=== PATIENT | male | born 1985 | race Caucasian/White ===

== ENCOUNTER 2017-04-02 22:22 | Emergency (ER) | payer MEDICARE, MEDICAID ==
[2017-04-03] MEDS ORDERED: Metoclopramide HCl 10 MG/2 ML VIAL ONE (00:02)
[2017-04-03] MEDS ORDERED: diphenhydrAMINE 50 MG/ML VIAL ONE (00:02)
[2017-04-03] MEDS ORDERED: Ketorolac Tromethamine 30 MG/ML VIAL ONE (01:02)
--- NOTE | 2017-04-03 09:19 | CT ---
PRELIMINARY REPORT/[facility]/EMERGENCY AFTER HOURS PROCEDURE: EXAM: CT Head Without Intravenous Contrast EXAM DATE/TIME: Exam ordered 04/03/2017 12:33 AM CLINICAL HISTORY: 31 years old, male; Pain; Headache; Patient HX: History provided by patient, onset 11 days ago. HX of tbi 11y. A. Frontal ZHAO, associated w photophobia. No relief with triptan. No neuro deficits. No fami ly HX anerysm. TECHNIQUE: Axial computed tomography images of the head/brain without intravenous contrast. COMPARISON: No relevant prior studies available. FINDINGS: Brain: Unremarkable. No hemorrhage. No significant white matter disease. No edema. Ventricles: Unremarkable. No ventriculomegaly. Bones/joints: Unremarkable. No acute fracture. Soft tissues: Unremarkable. Sinuses: Unremarkable as visualized. No acute sinusitis. Mastoid air cells: Unremarkable as visualized. No mastoid effusion. IMPRESSION: Normal head/brain CT. Thank you for allowing us to participate in the care of your patient. Dictated and Authenticated by: Bimal Cuello MD 04/03/2017 12:57 AM Central Time ([place] & [place]) FINAL REPORT BRAIN CT WITHOUT IV CONTRAST: EMERGENCY AFTER HOURS EXAM TIME: 12:40 a.m. DATE: 04/03/17. FINDINGS/IMPRESSION: No mass or bleed or other acute process. POS: [facility]
== END 2017-04-03 01:16 | disposition home or self-care (01) ==
LOC: SCSER 22:22
DX: R51 Headache (principal); F41.9 Anxiety disorder, unspecified; F42.9 Obsessive-compulsive disorder, unspecified
CPT/HCPCS: 70450; 96365; 96375; J1200; J1885; J2765

== ENCOUNTER 2017-04-05 10:15 | Outpatient (CLI) | payer MEDICARE, MEDICAID ==
--- NOTE | 2017-04-05 12:59 | MRI ---
MRA NIGHTMUTE OF HAST[place] AND VERTEBROBASILAR SYSTEM WITH 3D RECONSTRUCTIONS: 04/05/2017 HISTORY: Sudden onset of severe headache. The patient has had a headache for 13 days. TECHNIQUE: 3D [id number] images of the rampart of [place] and vertebrobasilar system are provided with 3D dennis nstruction images also provided. FINDINGS: No focal stenosis or branch occlusion is seen involving the anterior cerebral, middle cerebral, poste rior cerebral, or vertebrobasilar arteries. No focal aneurysm is seen within the limitations of the technique of this examination. IMPRESSION: Patent rampart of [place] and vertebrobasilar arteries. No focal aneurysm is seen within the limitatio ns of the technique of this exam. POS: [facility]
== END 2017-04-05 10:16 | disposition home or self-care (01) ==
LOC: TBSIIMAG 10:15
PROVIDERS: ATTEND Family Medicine
DX: R51 Headache (principal)
CPT/HCPCS: 70544

== ENCOUNTER 2017-08-16 01:06 | Emergency (ER) | payer MEDICARE, MEDICAID ==
[2017-08-16] MEDS ORDERED: Ketorolac Tromethamine 30 MG/ML VIAL ONE (01:12)
[2017-08-16 01:39] LABS: #Basophils 0.1 thou/uL (0.0-0.2); #Eosinphils 0.1 thou/uL (0.0-0.7); #Lymphocytes 1.9 thou/uL (1.20-3.40); #Monocytes 0.7 thou/uL (0.11-0.59); #Neutrophils 6.2 thou/uL (1.40-6.50); %Basophils 0.8 % (0.0-1.0); %Eosinophils 1.4 % (0.0-10.0); %Lymphocytes 21.2 % (21.0-51.0); %Monocytes 7.4 % (0.0-10.0); %Neutrophils 69.2 % (42.0-75.0); Hemoglobin 14.4 g/dL (14.0-18.0); Mean Corpuscular HGB CONC 35.4 g/dL (32.0-36.0); Mean Corpuscular Hemoglobin 29.7 pg (27.0-31.0); Mean Corpuscular Volume 83.9 fl (80.0-94.0); Mean Platelet Volume 9.8 fL (7.4-10.4); Platelet Count 177 thou/uL (130-400); RBC Distribution Width 11.5 % (11.5-14.5); Red Blood Cell (RBC) Count 4.84 mill/uL (4.70-6.10); White Blood Cell (WBC) Count 8.9 thou/uL (4.8-10.8)
[2017-08-16 02:09] LABS: Anion Gap 14 mmol/L (10-20); BUN (Urea Nitrogen) 14 mg/dL (8.9-20.6); Calc. Creatinine Clearance 0 mL/min (70-130); Carbon Dioxide 24 mmol/L (22-29); Chloride 104 mmol/L (98-107); Estimated GFR-MDRD 69; Glucose 130 mg/dL (70-105); Potassium 4.1 mmol/L (3.5-5.1); Sodium 138 mmol/L (136-145)
[2017-08-16 02:44] LABS: Bilirubin Negative (Negative); Blood, Urine Small (Negative); Clarity CLEAR (Clear); Glucose, Urine (Dipstick) Negative (Negative); Leukocyte Negative (Negative); Nitrite Negative (Negative); Protein, Urine (Dipstick) Trace mg/dL (Neg-Trace); Specific Gravity, Urine 1.021 (1.002-1.036); Urobilinogen 0.2 mg/dL (0.2-1.0); pH, Urine 7.5 (5.0-9.0)
[2017-08-16 02:46] LABS: Bacteria/HPF None Seen HPF (None Seen); Hyaline Casts/LPF 0-3 HYALINE CAST LPF (0-3 Hyaline); Pathc Cast-AUWi Flag 0.14 (0-2.49); Squamous Epithelial 0-3 HPF (0-3); WBC/HPF None Seen HPF (0-3)
[2017-08-16] MEDS ORDERED: HYDROcodone/Acetaminophen 10/325 mg Tablet ONE (04:01)
--- NOTE | 2017-08-16 08:43 | CT ---
PRELIMINARY REPORT/[facility]/EMERGENTY AFTER-HOURS PROCEDURE CT Abdomen and Pelvis Without Intravenous Contrast CLINICAL HISTORY: 32 years old, male; Pain; Abdominal pain; Flank; Right; Prior surgery; Patient HX: Er 6; R flank pain x 3 days with vomiting worse tonight. Surgical history of appendectomy TECHNIQUE: Axial computed tomography images of the abdomen and pelvis without intravenous contrast. Coronal refo rmatted images were created and reviewed. COMPARISON: No relevant prior studies available. FINDINGS: Lower thorax: Small hiatal hernia. ABDOMEN: Liver: Normal. No mass. Gallbladder and bile ducts: Normal. No calcified stones. No ductal dilation. Pancreas: Normal. No ductal dilation. Spleen: Normal. No splenomegaly. Adrenals: Normal. No mass. Kidneys and ureters: There are subcentimeter nonobstructing left renal stones. There is mild to moder ate right hydronephrosis secondary to 0.3 cm distal ureteral stone near the ureterovesical junction. Stomach and bowel: Normal. No obstruction. No mucosal thickening. Appendix: Appendectomy. PELVIS: Bladder: Unremarkable as visualized. Reproductive: Unremarkable as visualized. ABDOMEN and PELVIS: Intraperitoneal space: Normal. No free air. No significant fluid collection. Bones/joints: No acute fracture. No dislocation. Soft tissues: Unremarkable. Vasculature: Normal. No abdominal aortic aneurysm. Lymph nodes: Normal. No enlarged lymph nodes. IMPRESSION: 1. Mild to moderate right-sided hydronephrosis secondary to 0.3 cm distal ureteral stone near the ure terovesical junction. 2. Subcentimeter nonobstructing left renal stones. Thank you for allowing us to participate in the care of your patient. Dictated and Authenticated by: Chelsi Raymond DO 08/16/2017 2:41 AM Central Time ([place] & [place]) FINAL REPORT CT ABDOMEN AND PELVIS NONCONTRAST: DATE: 08/16/17. TIME: Performed on an emergency basis at 0127 hours. HISTORY: Right flank pain. FINDINGS: Findings agree with the preliminary report by Dr. Raymond from [facility]. Partial obstruction at a 3 mm distal right ureteral calculus. Additional nonobstructing left renal calculi. Lack of contrast limits evaluation for other abnormalities. POS: [facility]
== END 2017-08-16 03:39 | disposition home or self-care (01) ==
LOC: ERS 01:06
DX: N13.2 Hydronephrosis with renal and ureteral calculous obstruction (principal); F42.9 Obsessive-compulsive disorder, unspecified; F41.0 Panic disorder [episodic paroxysmal anxiety]
CPT/HCPCS: 36415; 74176; 80048; 81003; 81015; 85025; 96361; 96374; J1885

== ENCOUNTER 2017-09-29 11:09 | Outpatient (CLI) | payer MEDICARE, MEDICAID ==
[2017-09-29 12:51] LABS: #Basophils 0.1 thou/uL (0.0-0.2); #Eosinphils 0.1 thou/uL (0.0-0.7); #Lymphocytes 1.8 thou/uL (1.20-3.40); #Monocytes 0.8 thou/uL (0.11-0.59); #Neutrophils 4.7 thou/uL (1.40-6.50); %Basophils 1.1 % (0.0-1.0); %Eosinophils 1.4 % (0.0-10.0); %Lymphocytes 24.8 % (21.0-51.0); %Monocytes 10.1 % (0.0-10.0); %Neutrophils 62.7 % (42.0-75.0); Mean Corpuscular HGB CONC 35.3 g/dL (32.0-36.0); Mean Corpuscular Hemoglobin 29.6 pg (27.0-31.0); Mean Platelet Volume 9.8 fL (7.4-10.4); Platelet Count 194 thou/uL (130-400); RBC Distribution Width 11.5 % (11.5-14.5); Red Blood Cell (RBC) Count 5.07 mill/uL (4.70-6.10); White Blood Cell (WBC) Count 7.5 thou/uL (4.8-10.8)
[2017-09-29 13:17] LABS: Anion Gap 16 mmol/L (10-20); BUN (Urea Nitrogen) 14 mg/dL (8.9-20.6); Calc. Creatinine Clearance 0 mL/min (70-130); Calcium 9.7 mg/dL (7.8-10.44); Carbon Dioxide 23 mmol/L (22-29); Chloride 105 mmol/L (98-107); Estimated GFR-MDRD 89; Glucose 78 mg/dL (70-105); Potassium 3.8 mmol/L (3.5-5.1); Sodium 140 mmol/L (136-145)
== END 2017-09-29 11:10 | disposition home or self-care (01) ==
LOC: LABBT 11:09
PROVIDERS: ATTEND Surgery
DX: Z01.812 Encounter for preprocedural laboratory examination (principal); K40.90 Unilateral inguinal hernia, without obstruction or gangrene, not specified as recurrent
CPT/HCPCS: 80048; 85025

== ENCOUNTER 2017-10-12 11:25 | Day surgery (SDC) | payer MEDICARE, MEDICAID ==
[2017-09-29 11:27] VITALS: BMI 29.2
[2017-10-12] MEDS ORDERED: Levofloxacin 500 mg/D5W 100 ml Premix Bag ONE (12:58)
[2017-10-12] MEDS ORDERED: Midazolam HCl 2 mg/2 ml Vial ONE ×2 (12:58→13:37)
[2017-10-12] MEDS ORDERED: Fentanyl 100 MCG/2 ML VIAL ONE ×3 (13:37→16:20)
[2017-10-12] MEDS ORDERED: Bupivacaine/Epinephrine 0.25% 30 ML VIAL ONE (13:38)
[2017-10-12] MEDS ORDERED: PHENYLEPHRINE-NS 100 MCG/ML 10 ML SYRINGE ONE (14:50)
[2017-10-12] MEDS ORDERED: Lidocaine 1% PF 5 ML VIAL ONE (14:50)
[2017-10-12] MEDS ORDERED: Ketorolac Tromethamine 30 MG/ML VIAL ONE (14:50)
[2017-10-12] MEDS ORDERED: Ondansetron HCl/PF 4 MG/2 ML Vial ONE (14:50)
[2017-10-12] MEDS ORDERED: Dexamethasone 20 MG/5 ML VIAL ONE (14:50)
[2017-10-12] MEDS ORDERED: Glycopyrrolate 0.2 MG/ML 5 ML SYRINGE ONE (14:50)
[2017-10-12] MEDS ORDERED: PROPOFOL 200 MG/20 ML VIAL ONE (14:50)
[2017-10-12] MEDS ORDERED: Promethazine HCl 25 MG/ML VIAL ONE (15:27)
[2017-10-12] MEDS ORDERED: Meperidine HCl/PF 25 MG/ML VIAL ONE (15:29)
[2017-10-12] MEDS ORDERED: HYDROcodone/Acetaminophen 5/325 mg Tablet ONE (17:28)
--- NOTE | 2017-10-12 20:24 | OP ---
DATE OF PROCEDURE: 10/12/2017 PREOPERATIVE DIAGNOSIS: Right inguinal hernia. POSTOPERATIVE DIAGNOSIS: Right inguinal hernia. PROCEDURE: Da Carmen laparoscopic right inguinal hernia repair with mesh, Bard 3DMax large. SURGEON: Miguel Angel Whalen M.D. ANESTHESIA: General. ESTIMATED BLOOD LOSS: Minimal. COMPLICATIONS: None. SPECIMEN: None. FINDINGS: Right inguinal hernia. TECHNIQUE: The patient was taken to the operating room and placed supine on the table. After genera l anesthetic was obtained, a Peter was placed. The abdomen was shaved, prepped, and draped in a ster ile fashion. Curved incision was made above the umbilicus, cut dissect down to and score the fascia. Abdominal cavity was entered bluntly using a Stephanie clamp. Holding stitch of PDS placed on each agnes e of the fascia. A 11 mm balloon trocar was placed. High-flow pneumoperitoneum was obtained. Left and right abdominal 8 mm robot trocars were placed. All ports were docked to the robot. The patient had been placed in Trendelenburg position. The peritoneum was opened in the right lower quadrant in to the preperitoneal space of the right groin. Preperitoneal space was bluntly dissected to the pubi c tubercle medially and to the anterior superiorly iliac crest laterally. The iliopectineal line was fully exposed. There was an indirect hernia. The indirect hernia sac was dissected out of the ingu inal canal back high up onto the peritoneum. A 3DMax large mesh had been brought into the sterile fi eld and labeled medial aspect was placed over pubic tubercle medially. The mesh laid out laterally t o cover the femoral direct and indirect areas. The mesh was sewn via Vicryl suture to pubic tubercle and to the posterior fascia lateral to the inferior epigastric vessels. The peritoneum was reapprox imated using 3-0 Stratafix. All port sites were infiltrated using local anesthetic. All ports were removed under a conversation without bleeding. Pneumoperitoneum was let down. PDS was used to close the fascial defect below the umbilicus. All incisions were irrigated and closed using 4-0 Monocryl and Dermabond. The patient went to recovery in stable condition. All sponge counts, needle counts, lap counts were correct.
== END 2017-10-12 18:08 | disposition home or self-care (01) ==
LOC: SDC 11:25
PROVIDERS: ATTEND Surgery
PROC: 0YU54JZ Supplement Right Inguinal Region with Synthetic Substitute, Percutaneous Endoscopic Approach (ICD-10-PCS; principal; 2017-10-12)
DX: K40.90 Unilateral inguinal hernia, without obstruction or gangrene, not specified as recurrent (principal); F32.9 Major depressive disorder, single episode, unspecified; F41.9 Anxiety disorder, unspecified; Z87.820 Personal history of traumatic brain injury; Z79.899 Other long term (current) drug therapy; Z88.1 Allergy status to other antibiotic agents
CPT/HCPCS: 49650; 96374 ×2; C1781; 96375; 96376; J1100; J1885; J1956; J2001; J2175; J2250; J2405; J2550; J2704; J3010

== ENCOUNTER 2018-03-12 20:54 | Emergency (ER) | payer MEDICARE, MEDICAID ==
[2018-03-12] MEDS ORDERED: Ketorolac Tromethamine 30 MG/ML VIAL ONE (21:15)
[2018-03-12] MEDS ORDERED: Dicyclomine 20 MG TAB ONE ×2 (21:15→21:30)
[2018-03-12 21:38] LABS: #Basophils 0.1 thou/uL (0.0-0.2); #Eosinphils 0.1 thou/uL (0.0-0.7); #Lymphocytes 2.3 thou/uL (1.20-3.40); #Monocytes 0.7 thou/uL (0.11-0.59); #Neutrophils 5.9 thou/uL (1.40-6.50); %Basophils 1.2 % (0.0-1.0); %Eosinophils 1.1 % (0.0-10.0); %Lymphocytes 24.9 % (21.0-51.0); %Monocytes 8.1 % (0.0-10.0); %Neutrophils 64.7 % (42.0-75.0); Hemoglobin 16.1 g/dL (14.0-18.0); Mean Corpuscular HGB CONC 35.8 g/dL (32.0-36.0); Mean Corpuscular Hemoglobin 29.2 pg (27.0-31.0); Mean Corpuscular Volume 81.6 fL (78.0-98.0); Mean Platelet Volume 11.9 fL (7.4-10.4); Platelet Count 234 thou/uL (130-400); Red Blood Cell (RBC) Count 5.52 mill/uL (4.70-6.10); White Blood Cell (WBC) Count 9.1 thou/uL (4.8-10.8)
[2018-03-12 21:50] LABS: ALT (SGPT) 27 U/L (8-55); AST (SGOT) 18 U/L (5-34); Albumin 4.9 g/dL (3.5-5.0); Alkaline Phosphatase 56 U/L (40-150); Anion Gap 14 mmol/L (10-20); BUN (Urea Nitrogen) 13 mg/dL (8.9-20.6); Bilirubin, Total 0.8 mg/dL (0.2-1.2); Calc. Creatinine Clearance 0 mL/min (70-130); Calcium 9.8 mg/dL (7.8-10.44); Carbon Dioxide 28 mmol/L (22-29); Chloride 103 mmol/L (98-107); Estimated GFR-MDRD 85; Globulin 3.2 g/dL (2.4-3.5); Glucose 83 mg/dL (70-105); Potassium 3.9 mmol/L (3.5-5.1); Protein, Total 8.1 g/dL (6.0-8.3); Sodium 141 mmol/L (136-145)
[2018-03-12 22:44] LABS: Bilirubin Negative (Negative); Blood, Urine Negative (Negative); Clarity Clear (Clear); Glucose, Urine (Dipstick) Negative (Negative); Leukocyte Negative (Negative); Nitrite Negative (Negative); Protein, Urine (Dipstick) Negative (Neg-Trace); Urobilinogen 0.2 mg/dL (0.2-1.0)
--- NOTE | 2018-03-12 23:53 | CT ---
ABDOMEN AND PELVIC CT SCAN WITH IV CONTRAST 03/12/18 HISTORY: Right sided abdominal pain including right lower quadrant. Prior right inguinal surgery repair one ye ar ago. Lung bases are clear. The liver, gallbladder, pancreas, spleen, adrenal glands are unremarkable. Ther e are two small nonobstructing left renal calculi but no evidence for acute obstruction. Status po st appendectomy. Urinary bladder is unremarkable. No evidence for intraperitoneal fluid, adenopathy, or bowel obstruction. IMPRESSION: Nonobstructing left renal calculi. No evidence for acute obstruction. Status post appendectomy. No evidence for other significant acute process in the abdomen or pelvis. POS: [facility]
== END 2018-03-12 23:47 | disposition home or self-care (01) ==
LOC: SCSER 20:54
DX: R10.31 Right lower quadrant pain (principal); F41.0 Panic disorder [episodic paroxysmal anxiety]
CPT/HCPCS: 74177; 80053; 81003; 85025; 87086; 96361; 96374; J1885

== ENCOUNTER 2018-09-15 00:04 | Emergency (ER) | payer MEDICARE, MEDICAID | END 2018-09-15 00:27 | disposition home or self-care (01) | LOC: SCSER 00:04 | DX: I80.9 Phlebitis and thrombophlebitis of unspecified site (principal); F41.0 Panic disorder [episodic paroxysmal anxiety] | CPT/HCPCS: 99283 ==

== ENCOUNTER 2019-02-07 13:25 | Outpatient (CLI) | payer MEDICARE, MEDICAID ==
--- NOTE | 2019-02-07 14:22 | ULT ---
US Renal Bilateral STANDARD History: Varicocele Comparison: CT abdomen and pelvis March 2018 Findings: Real-time grayscale and color evaluation of the kidneys and urinary bladder was performed. Right kidney measures 11.3 x 4.8 x 5.8 cm and the left kidney measures 11.6 x 5.2 x 5.1 cm. No renal mass, hydronephrosis, or abnormal calcifications. Urinary bladder volume is 382 mL prevoid with no significant post void residual. Both ureteral jets a re visualized. Impression: Normal renal examination.
== END 2019-02-07 13:26 | disposition home or self-care (01) ==
LOC: BICULT 13:25
PROVIDERS: ATTEND Urology
DX: I86.1 Scrotal varices (principal)
CPT/HCPCS: 76770

== ENCOUNTER 2019-04-07 05:34 | Outpatient (CLI) | payer MEDICARE, MEDICAID ==
[2019-04-07 18:09] LABS: Hemoglobin 18.4 g/dL (14.0-18.0); Mean Corpuscular HGB CONC 34.8 g/dL (32.0-36.0); Mean Corpuscular Hemoglobin 29.8 pg (27.0-31.0); Mean Corpuscular Volume 85.7 fL (78.0-98.0); Mean Platelet Volume 9.7 fL (7.4-10.4); Platelet Count 299 thou/uL (130-400); RBC Distribution Width 11.8 % (11.5-14.5); Red Blood Cell (RBC) Count 6.18 mill/uL (4.70-6.10); White Blood Cell (WBC) Count 9.3 thou/uL (4.8-10.8)
[2019-04-07 18:11] LABS: Bacteria/HPF None Seen HPF (None Seen); Bilirubin Negative (Negative); Blood, Urine Negative (Negative); Clarity Clear (Clear); Glucose, Urine (Dipstick) Normal (Negative); Leukocyte Negative Leu/uL (Negative); Mucous/LPF Rare LPF (<2+); Nitrite Negative (Negative); Protein, Urine (Dipstick) Negative (Neg-Trace); RBC/HPF 0-3 HPF (0-3); Squamous Epithelial None Seen HPF (0-3); Urobilinogen Normal mg/dL (Less than 2); WBC/HPF 0-3 HPF (0-3)
[2019-04-07 18:18] LABS: INR-International Normal Ratio 1.1; PTT 31.5 SEC (22.9-36.1); Prothrombin Time 14.5 SEC (12.0-14.7)
[2019-04-07 18:33] LABS: Anion Gap 16 mmol/L (10-20); BUN (Urea Nitrogen) 14 mg/dL (8.9-20.6); Calc. Creatinine Clearance 0 mL/min (70-130); Calcium 9.9 mg/dL (7.8-10.44); Carbon Dioxide 25 mmol/L (22-29); Chloride 101 mmol/L (98-107); Estimated GFR-MDRD 77; Glucose 91 mg/dL (70-105); Sodium 138 mmol/L (136-145)
== END 2019-04-07 05:35 | disposition home or self-care (01) ==
LOC: LABBT 05:34
PROVIDERS: ATTEND Urology
DX: Z01.818 Encounter for other preprocedural examination (principal); R10.31 Right lower quadrant pain; N20.0 Calculus of kidney; N34.3 Urethral syndrome, unspecified; G89.29 Other chronic pain; N50.819 Testicular pain, unspecified; R10.2 Pelvic and perineal pain; E29.1 Testicular hypofunction; N52.1 Erectile dysfunction due to diseases classified elsewhere
CPT/HCPCS: 80048; 81001; 85027; 85610; 85730; 87086

== ENCOUNTER 2019-04-13 06:44 | Day surgery (SDC) | payer MEDICARE, MEDICAID ==
[2019-04-07 17:16] VITALS: BMI 29.5
[2019-04-13] MEDS ORDERED: Fentanyl 100 MCG/2 ML VIAL ONE (06:48)
[2019-04-13] MEDS ORDERED: Bupivacaine 0.25% HCL 30 ML VIAL ONE (06:57)
[2019-04-13] MEDS ORDERED: Bacitracin Zinc Ointment 30 gm TUBE ONE (06:57)
[2019-04-13] MEDS ORDERED: Midazolam HCl 2 mg/2 ml Vial ONE (08:52)
[2019-04-13] MEDS ORDERED: Ondansetron PF 4 MG/2 ML Vial ONE (14:26)
[2019-04-13] MEDS ORDERED: Ketorolac Tromethamine 30 MG/ML VIAL ONE (14:26)
[2019-04-13] MEDS ORDERED: Lidocaine 1% PF 5 ML VIAL ONE (14:26)
[2019-04-13] MEDS ORDERED: Dexamethasone 20 MG/5 ML VIAL ONE (14:26)
[2019-04-13] MEDS ORDERED: PROPOFOL 200 MG/20 ML VIAL ONE (14:26)
--- NOTE | 2019-04-13 15:04 | OP ---
DATE OF PROCEDURE: 04/13/2019 SERVICE: Urology. PREOPERATIVE DIAGNOSIS: Right epididymal pain. POSTOPERATIVE DIAGNOSIS: Right epididymal pain. PROCEDURE PERFORMED: Right epididymectomy. INDICATION FOR PROCEDURE: Mr. Garcia is a 33-year-old white male with right epididymal pain. He presented with scrotal pain on the right side, which was thoroughly evaluated and found to be located in the right epididymis. A cord block demonstrated complete cessation of the pain, indicating the pain is likely coming from the testicular region. We discussed epididymectomy as a possible solution to this; although, there were no guarantees made. He understands that this may not completely alleviate his pain, but there does seem to be good evidence that may be based on current workup. He understands there will be decrease in his fertility as a result of this procedure. He understands and is willing to proceed forward. Other risks and benefits were also discussed with the patient, and he is also in agreement with those as well. DESCRIPTION OF PROCEDURE: After identification of armband and verification of consent, the patient was brought back to the operating room. He underwent general anesthesia with an LMA. He was left in the supine position and prepped and draped in usual sterile fashion. After appropriate time-out, a cord block was performed at the right scrotum at the external ring nerve block. An incision was made over the right hemiscrotum over the testicle, and dissection was carried down with Bovie electrocautery and sharp dissection until the tunica vaginalis was identified. The testis was delivered outside the patient's scrotum and the tunica vaginalis opened. This was widely opened to prevent hydrocele recurrence. The testicle appeared grossly normal. There was an appendix testis, which was removed. There were no obvious masses or lesions. The epididymis appeared grossly normal. There was no significant inflammation, scarring, abscesses, or masses. Given that the surgery is being done for pain control, there was no specific abnormality. It was targeted for removal. Initial dissection of the epididymis was then begun at the head of the epididymis and dissected off the testicle using Bovie electrocautery. The rete testis was from the testicle with Bovie electrocautery, and dissection was carried down along the body of the epididymis. At one point, one of the pampiniform veins came in very close proximity to the epididymis and had a slight migdalia in it from the cautery, which resulted in some bleeding. There was a very minor bleed, but due to the persistence, a small 4-0 Vicryl was placed in just that vein to avoid testicular artery ligation, which resulted in good control of the venous bleeding with no change in color or skin into the testicle. The epididymis was then continued to be dissected down all the way up to the tail of the epididymis, which was removed. The dissection was then carried out approximately 2 to 3 cm onto the vas deferens. At which point, the vas deferens was ligated to control the deferential artery in two locations, then divided. The full epididymis and portion of the vas deferens was then submitted for routine pathologic evaluation. Any minor bleeding areas were cauterized. Upon completion, there was no obvious bleeding from anywhere on the testicle, tunica vaginalis, or region of where the epididymis used to be. The testicle appeared viable. There would appear to be no injury to the testicular artery. A cord block was performed directly onto the testicular cord approximately 2 to 3 mL of 0.25% Marcaine plain, which was done early on in the case. A drain was brought in through the inferior aspect of the scrotum by making a small approximately 1 cm incision on the inferior aspect of the scrotum using the cutting current on the Bovie electrocautery. Hemostats were then used to guide in quarter-inch Destin drain, at which the top end was suture ligated using a 4-0 Monocryl to a very small piece of the external spermatic fascia for later retrieval. The drain was secured on the outside of the skin with a 2-0 nylon. The testis was then copiously irrigated, and the fluid was drained out. The dartos and spermatic fascia were then closed using a 2-0 Vicryl in a running fashion. The skin was closed with a 4-0 Monocryl. Dermabond was applied and once dry, 4x4s were put over the drain site and then a jockstrap applied. The patient was then awakened, taken to PACU for recovery in stable condition. COMPLICATIONS: None. ESTIMATED BLOOD LOSS: Minimal. RETAINED TUBES AND DRAINS: A quarter-inch Freedom drain. SPECIMENS: Right epididymis and portion of the vas deferens. DISPOSITION: The patient will be discharged home and follow up with me in approximately 2 weeks, but he will have his drain removed next week as a nursing visit. Job ID: [id number]
== END 2019-04-13 13:25 | disposition home or self-care (01) ==
LOC: SDC 06:44
PROVIDERS: ATTEND Urology
PROC: 0VTJ0ZZ Resection of Right Epididymis, Open Approach (ICD-10-PCS; principal; 2019-04-13)
DX: N50.811 Right testicular pain (principal); Q55.29 Other congenital malformations of testis and scrotum; G47.00 Insomnia, unspecified; F41.0 Panic disorder [episodic paroxysmal anxiety]; F32.9 Major depressive disorder, single episode, unspecified; N52.1 Erectile dysfunction due to diseases classified elsewhere; E29.1 Testicular hypofunction; G89.29 Other chronic pain; R10.31 Right lower quadrant pain; R10.2 Pelvic and perineal pain; Z87.820 Personal history of traumatic brain injury; Z79.899 Other long term (current) drug therapy; Z88.1 Allergy status to other antibiotic agents
CPT/HCPCS: 88304; J0690; J1100; J1885; J2001; J2250; J2405; J2704; J3010; S0020

== ENCOUNTER 2019-04-27 12:31 | Outpatient (CLI) | payer MEDICARE, MEDICAID ==
--- NOTE | 2019-04-27 13:41 | ULT ---
EXAM: US Testicular W Doppler PROVIDED CLINICAL HISTORY: Hydrocele COMPARISON: None FINDINGS: Right testicle measures approximately 3.7 x 2.1 x 2.3 cm and demonstrates a normal grayscale sonograp hic appearance. The right epididymis is not visualized. There is a large complex right hydrocele. Left testicle measures approximately 3.4 x 2.2 x 2.2 cm and demonstrates a normal grayscale sonograph ic appearance. The left epididymis appears normal. No evidence for left-sided hydrocele. No evidence for varicocele. Color Doppler and spectral analysis of the testicular waveforms demonstrates flow bilaterally. IMPRESSION: Large complex right hydrocele.
== END 2019-04-27 12:32 | disposition home or self-care (01) ==
LOC: SCSULT 12:31
PROVIDERS: ATTEND Urology
DX: N43.3 Hydrocele, unspecified (principal)
CPT/HCPCS: 76870; 93976

== ENCOUNTER 2019-05-10 07:47 | Outpatient (CLI) | payer MEDICARE, MEDICAID ==
[2019-05-10 13:13] LABS: Mean Corpuscular HGB CONC 34.8 g/dL (32.0-36.0); Mean Corpuscular Hemoglobin 29.7 pg (27.0-31.0); Mean Corpuscular Volume 85.3 fL (78.0-98.0); Mean Platelet Volume 9.3 fL (7.4-10.4); Platelet Count 270 thou/uL (130-400); RBC Distribution Width 11.5 % (11.5-14.5); Red Blood Cell (RBC) Count 5.39 mill/uL (4.70-6.10); White Blood Cell (WBC) Count 9.3 thou/uL (4.8-10.8)
[2019-05-10 13:20] LABS: INR-International Normal Ratio 1.1; Prothrombin Time 13.8 SEC (12.0-14.7)
[2019-05-10 13:26] LABS: Bacteria/HPF None Seen HPF (None Seen); Bilirubin Negative (Negative); Blood, Urine Negative (Negative); Clarity Clear (Clear); Glucose, Urine (Dipstick) Normal (Negative); Leukocyte Negative Leu/uL (Negative); Nitrite Negative (Negative); Protein, Urine (Dipstick) Negative (Neg-Trace); RBC/HPF 0-3 HPF (0-3); Squamous Epithelial 0-3 HPF (0-3); Urobilinogen Normal mg/dL (Less than 2); WBC/HPF 0-3 HPF (0-3)
[2019-05-10 13:31] LABS: PTT 32.6 SEC (22.9-36.1)
[2019-05-10 14:11] LABS: Anion Gap 14 mmol/L (10-20); BUN (Urea Nitrogen) 16 mg/dL (8.9-20.6); Calc. Creatinine Clearance 0 mL/min (70-130); Calcium 10.2 mg/dL (7.8-10.44); Carbon Dioxide 25 mmol/L (22-29); Chloride 102 mmol/L (98-107); Estimated GFR-MDRD 70; Glucose 78 mg/dL (70-105); Potassium 3.7 mmol/L (3.5-5.1); Sodium 137 mmol/L (136-145)
== END 2019-05-10 07:48 | disposition home or self-care (01) ==
LOC: LABBT 07:47
PROVIDERS: ATTEND Urology
DX: Z01.812 Encounter for preprocedural laboratory examination (principal); N43.3 Hydrocele, unspecified; E29.1 Testicular hypofunction; N50.819 Testicular pain, unspecified
CPT/HCPCS: 80048; 81001; 85027; 85610; 85730; 87086

== ENCOUNTER 2019-05-18 09:37 | Day surgery (SDC) | payer MEDICARE, MEDICAID ==
[2019-05-10 11:22] VITALS: BMI 31.0
[2019-05-18] MEDS ORDERED: Ondansetron PF 4 MG/2 ML Vial ONE (09:50)
[2019-05-18] MEDS ORDERED: Metoclopramide HCl 10 MG/2 ML VIAL ONE (09:50)
[2019-05-18] MEDS ORDERED: Lidocaine 1% PF 5 ML VIAL ONE (09:50)
[2019-05-18] MEDS ORDERED: diphenhydrAMINE 50 MG/ML VIAL ONE (09:50)
[2019-05-18] MEDS ORDERED: PROPOFOL 200 MG/20 ML VIAL ONE (09:50)
[2019-05-18] MEDS ORDERED: Sodium Chloride 0.9% 0 ML ONE (13:03)
[2019-05-18] MEDS ORDERED: CEFAZOLIN 1 GM VIAL ONE (13:03)
[2019-05-18] MEDS ORDERED: Bupivacaine 0.25% HCL 30 ML VIAL ONE (13:25)
[2019-05-18] MEDS ORDERED: Fentanyl 100 MCG/2 ML VIAL ONE (13:39)
[2019-05-18] MEDS ORDERED: Vancomycin 1 GM/200 ML BAG ONE (14:03)
--- NOTE | 2019-05-18 16:02 | OP ---
DATE OF PROCEDURE: 05/18/2019 SERVICE: Urology. PREOPERATIVE DIAGNOSIS: Hemorrhagic postoperative hydrocele. POSTOPERATIVE DIAGNOSIS: Hemorrhagic postoperative hydrocele. PROCEDURE PERFORMED: Right hydrocelectomy. INDICATION FOR PROCEDURE: Mr. Garcia is a 34-year-old white male, who initially came to me with complaints of chronic testicular pain. His pain is localized to the right epididymis, which responded to a cord block. We performed a right epididymectomy, but unfortunately the patient removed his drain prematurely and developed a postoperative hydrocele. This did spontaneously rupture at some point a few days before his surgery, but the patient had already elected to go back for hydrocelectomy. I discussed proceeding forward with hydrocelectomy versus continued observation. The patient elected to go for a hydrocelectomy with all risks and benefits discussed, he has agreed to proceed. DESCRIPTION OF PROCEDURE: After identification of armband and verification of consent, the patient was brought back to the operating room. He underwent general anesthesia with an LMA. He was left in the supine position and prepped and draped in usual sterile fashion. After appropriate time-out and using his existing incision, this was extended using a 15 blade and electrocautery to adequately expose the underlying tissues. The hydrocele rind was extremely thick and fibrotic. I was able to put the suction inside the hydrocele chamber and sucked out a large amount of necrotic material. Most of the fluid had already been previously drained as the patient ruptured his hydrocele accidentally at home. Dissection was carried out around the hydrocele sac between the dartos and spermatic fascia until the majority of the hydrocele sac could be identified. The testicle was extremely fibrotic and adhesed to the surrounding tissues out of concern and fear with improper dissection that we could get into the spermatic cord and cause a loss of the entire testicle. I elected to leave the testicle in situ and since the majority of the hydrocele was anterior to the testicle and the rind was extremely thick and the testicle could be palpated in the inside of the hydrocele sac, I went ahead and just excised as much of the hydrocele sac as I safely could without getting too close to the testicle. The hydrocele sac fragments were sent off for routine pathologic evaluation. The inside of the scrotum was then copiously washed with antibiotic irrigation. Meticulous hemostasis was performed of tissues that were inflamed or bleeding or any type of granulation tissue until there was good hemostasis. There was still slight oozing, but at this point I felt that there would not be able to get any further hemostasis than what had been achieved. There was no major bleeding. A small incision was made with the cutting current on the Bovie pen on the inferior aspect of the scrotum where the previous drain site was. Freedom drain was brought through the incision site using hemostat. The proximal end of the [place] was anchored with two separate 4-0 Monocryl sutures to the inside of the dartos fascia for anchoring and the external aspects ligated with a 3-0 nylon. The dartos fascia was then closed with a 4-0 Vicryl in a running fashion and the skin closed with a 4-0 Monocryl. Dermabond was applied and a block was performed of the incision and a cord block with a total of 15 mL of 0.25% Marcaine plain. Once dried, scrotal fluffs were applied and then a jockstrap. The patient was then awakened and taken to PACU for recovery in stable condition. COMPLICATIONS: None. ESTIMATED BLOOD LOSS: Minimal. RETAINED TUBES AND DRAINS: A quarter-inch Freedom drain. SPECIMENS: Hydrocele sac. DISPOSITION: The patient will be discharged home and follow up with me in approximately 1 to 2 weeks for postop check and drain removal. Job ID: [id number] [facility]
[2019-05-18] MEDS ORDERED: Morphine 2 MG/ML SYRINGE ONE (16:24)
[2019-05-18] MEDS ORDERED: HYDROcodone/Acetaminophen 5/325 mg Tablet ONE (17:35)
== END 2019-05-18 18:25 | disposition home or self-care (01) ==
LOC: SDC 09:37
PROVIDERS: ATTEND Urology
PROC: 0VB60ZZ Excision of Right Tunica Vaginalis, Open Approach (ICD-10-PCS; principal; 2019-05-18)
DX: N99.820 Postprocedural hemorrhage of a genitourinary system organ or structure following a genitourinary system procedure (principal); E29.1 Testicular hypofunction; F41.9 Anxiety disorder, unspecified; F32.9 Major depressive disorder, single episode, unspecified; Z79.899 Other long term (current) drug therapy; Z88.1 Allergy status to other antibiotic agents
CPT/HCPCS: 88302; J0690; J1200; J2001; J2270; J2405; J2704; J2765; J3010; J3370; J3490; S0020

== ENCOUNTER 2020-06-29 21:35 | Emergency (ER) | payer MEDICARE, MEDICAID ==
[2020-06-29] MEDS ORDERED: Mag-Al 1200 mg/1200 mg/30 ML UDCUP ONE (23:18)
[2020-06-29] MEDS ORDERED: Lidocaine Viscous Sol 2% 15 ml UD Cup ONE (23:18)
[2020-06-29 23:21] LABS: #Basophils 0.1 thou/uL (0.0-0.2); #Eosinphils 0.2 thou/uL (0.0-0.7); #Lymphocytes 2.5 thou/uL (1.20-3.40); #Monocytes 0.9 thou/uL (0.11-0.59); #Neutrophils 2.9 thou/uL (1.40-6.50); %Basophils 1.4 % (0.0-1.0); %Eosinophils 2.9 % (0.0-10.0); %Lymphocytes 38.4 % (21.0-51.0); %Monocytes 13.4 % (0.0-10.0); %Neutrophils 43.9 % (42.0-75.0); Hemoglobin 16.6 g/dL (14.0-18.0); Mean Corpuscular HGB CONC 34.4 g/dL (32.0-36.0); Mean Corpuscular Hemoglobin 29.5 pg (27.0-31.0); Mean Corpuscular Volume 85.7 fL (78.0-98.0); Mean Platelet Volume 9.1 fL (7.4-10.4); Platelet Count 197 thou/uL (130-400); RBC Distribution Width 11.7 % (11.5-14.5); Red Blood Cell (RBC) Count 5.61 mill/uL (4.70-6.10); White Blood Cell (WBC) Count 6.6 thou/uL (4.8-10.8)
[2020-06-29 23:43] LABS: ALT (SGPT) 35 U/L (8-55); AST (SGOT) 17 U/L (5-34); Albumin 4.5 g/dL (3.5-5.0); Alkaline Phosphatase 54 U/L (40-110); Anion Gap 13 mmol/L (10-20); BUN (Urea Nitrogen) 13 mg/dL (8.9-20.6); Bilirubin, Total 0.6 mg/dL (0.2-1.2); Calc. Creatinine Clearance 0 mL/min (70-130); Carbon Dioxide 28 mmol/L (22-29); Chloride 103 mmol/L (98-107); Glucose 99 mg/dL (70-105); Lipase 75 U/L (8-78); Potassium 4.4 mmol/L (3.5-5.1); Protein, Total 7.5 g/dL (6.0-8.3); Sodium 140 mmol/L (136-145)
== END 2020-06-30 00:37 | disposition home or self-care (01) ==
LOC: ERS 21:35
DX: R07.9 Chest pain, unspecified (principal); R06.00 Dyspnea, unspecified; K21.9 Gastro-esophageal reflux disease without esophagitis; Z79.899 Other long term (current) drug therapy
CPT/HCPCS: 36415; 71046; 80053; 83690; 84484; 85025; 93005

== ENCOUNTER 2020-08-30 13:32 | Outpatient (CLI) | payer MEDICARE, MEDICAID | END 2020-08-30 13:33 | disposition home or self-care (01) | LOC: RAD 13:32 | PROVIDERS: ATTEND Physician Assistant Medical | DX: R13.10 Dysphagia, unspecified (principal); R05 Cough; M89.8X1 Other specified disorders of bone, shoulder | CPT/HCPCS: 74220 ==

== ENCOUNTER 2021-04-24 09:22 | Outpatient (CLI) | payer MEDICARE, MEDICAID | END 2021-04-24 09:23 | disposition home or self-care (01) | LOC: RAD 09:22 | PROVIDERS: ATTEND Internal Medicine Critical Care Medicine | DX: R06.00 Dyspnea, unspecified (principal) | CPT/HCPCS: 71046 ==

== ENCOUNTER 2022-10-27 18:13 | Emergency (ER) | payer MEDICARE, MEDICAID ==
[2022-10-27 21:33] LABS: #Basophils 0.1 thou/uL (0.0-0.2); #Eosinphils 0.1 thou/uL (0.0-0.7); #Monocytes 0.7 thou/uL (0.11-0.59); #Neutrophils 4.7 thou/uL (1.40-6.50); %Basophils 0.9 % (0.0-1.0); %Eosinophils 1.2 % (0.0-10.0); %Lymphocytes 25.6 % (21.0-51.0); %Monocytes 9.4 % (0.0-10.0); %Neutrophils 62.8 % (42.0-75.0); Hematocrit 46.9 % (42.0-52.0); Hemoglobin 16.7 g/dL (14.0-18.0); Mean Corpuscular HGB CONC 35.6 g/dL (32.0-36.0); Mean Corpuscular Hemoglobin 29.6 pg (27.0-31.0); Mean Corpuscular Volume 83.2 fl (78.0-98.0); Mean Platelet Volume 11.2 fL (7.4-10.4); Platelet Count 251 10x3/uL (130-400); RBC Distribution Width 12.5 % (11.5-14.5); Red Blood Cell (RBC) Count 5.64 mill/uL (4.70-6.10); White Blood Cell (WBC) Count 7.4 10x3/uL (4.8-10.8)
[2022-10-27 21:57] LABS: Bacteria/HPF None Seen HPF (None Seen); Bilirubin Negative (Negative); Blood, Urine Trace (Negative); CAUTI Indications for Culture Pelvic or flank pain; Clarity Clear (Clear); Glucose, Urine (Dipstick) Normal (Negative); Ketone, Urine Negative (Negative); Leukocyte Negative Leu/uL (Negative); Nitrite Negative (Negative); Protein, Urine (Dipstick) Negative (Neg-Trace); RBC/HPF 0-3 HPF (0-3); Specific Gravity, Urine 1.003 (1.002-1.036); Squamous Epithelial None Seen HPF (0-3); Urobilinogen Normal mg/dL (Less than 2); WBC/HPF None Seen HPF (0-3)
[2022-10-27 22:02] LABS: Anion Gap 13 mmol/L (10-20); BUN (Urea Nitrogen) 12 mg/dL (8.9-20.6); Calc. Creatinine Clearance 0 mL/min (70-130); Carbon Dioxide 26 mmol/L (22-29); Chloride 104 mmol/L (98-107); Potassium 3.9 mmol/L (3.5-5.1); Sodium 139 mmol/L (136-145)
[2022-10-27 22:02] LABS: Urine Culture Reflex No No
[2022-10-27 22:03] LABS: ALT (SGPT) 24 U/L (8-55); AST (SGOT) 18 U/L (5-34); Albumin 4.6 g/dL (3.5-5.0); Alkaline Phosphatase 50 U/L (40-110); Bilirubin, Total 0.6 mg/dL (0.2-1.2); Calcium 9.5 mg/dL (7.8-10.44); Estimated GFR 92; Globulin 2.9 g/dL (2.4-3.5); Glucose 89 mg/dL (70-105); Protein, Total 7.5 g/dL (6.0-8.3)
[2022-10-27] MEDS ORDERED: Ketorolac Tromethamine 30 MG/ML VIAL ONE (22:44)
== END 2022-10-27 23:17 | disposition home or self-care (01) ==
LOC: ERS 18:13
DX: R10.31 Right lower quadrant pain (principal); K21.9 Gastro-esophageal reflux disease without esophagitis
CPT/HCPCS: 36415; 76870; 80053; 81001; 85025; 93976; 96372; J1885

== ENCOUNTER 2023-02-17 13:20 | Outpatient (CLI) | payer MEDICARE, MEDICAID | END 2023-02-17 13:21 | disposition home or self-care (01) | LOC: BICCT 13:20 | PROVIDERS: ATTEND Neurological Surgery | DX: M54.2 Cervicalgia (principal); M54.50 Low back pain, unspecified; M51.36 Other intervertebral disc degeneration, lumbar region | CPT/HCPCS: 72125; 72131 ==

== ENCOUNTER 2024-10-07 01:59 | Emergency (ER) | payer MEDICARE, MEDICAID ==
[2024-10-07 04:15] LABS: #Basophils 0.08 10x3/uL (0.0-0.2); #Eosinophils 0.25 10x3/uL (0.0-0.7); #Monocytes 0.95 10x3/uL (0.11-0.59); #Neutrophils 4.04 10x3/uL (1.40-6.50); %Basophils 1.0 % (0.0-1.0); %Eosinophils 3.2 % (0.0-10.0); %Lymphocytes 32.5 % (21.0-51.0); %Monocytes 12.0 % (0.0-10.0); %Neutrophils 51.0 % (42.0-75.0); Hematocrit 45.5 % (42.0-52.0); Hemoglobin 16.0 g/dL (14.0-18.0); Mean Corpuscular Hemoglobin 28.7 pg (27.0-31.0); Mean Corpuscular Volume 81.5 fL (78.0-98.0); Platelet Count 255 10x3/uL (130-400); Red Blood Cell (RBC) Count 5.58 mill/uL (4.70-6.10); White Blood Cell (WBC) Count 7.91 10x3/uL (4.8-10.8)
[2024-10-07] MEDS ORDERED: Lidocaine 1% w/Epinephrine 1:100K 20 ML VIAL ONE (04:35)
[2024-10-07 04:54] LABS: ALT (SGPT) 24 U/L (Less than 45); AST (SGOT) 22 U/L (11-34); Albumin 4.3 g/dL (3.1-4.5); Alkaline Phosphatase 64 U/L (40-110); Anion Gap 13 mmol/L (10-20); BUN (Urea Nitrogen) 15 mg/dL (8.9-20.6); Bilirubin, Total 0.3 mg/dL (0.3-1.2); Calc. Creatinine Clearance 0 mL/min (70-130); Calcium 9.1 mg/dL (7.8-10.44); Carbon Dioxide 24 mmol/L (22-29); Chloride 105 mmol/L (98-107); Globulin 3.4 g/dL (2.4-3.5); Glucose 89 mg/dL (70-105); Potassium 4.4 mmol/L (3.5-5.1); Sodium 138 mmol/L (136-145)
== END 2024-10-07 05:05 | disposition home or self-care (01) ==
LOC: ERS 01:59
DX: L02.413 Cutaneous abscess of right upper limb (principal); Z55.6 Problems related to health literacy
CPT/HCPCS: 10060; 36415; 80053; 85025